=== PATIENT | female | born 1965 | race Caucasian/White ===

== ENCOUNTER → 2023-08-07 15:24 | Outpatient (REF) | payer OTHER, SELFPAY | LOC: MRI 3T 15:24 | PROVIDERS: ATTENDING PHYSICIAN Family Medicine | DX: K76.89 Other specified diseases of liver (principal) | CPT/HCPCS: 74183; A9575 ==

== ENCOUNTER 2024-01-08 13:19 | Emergency (ER) | payer OTHER, SELFPAY ==
[2024-01-08 13:24] VITALS: BP 121/65
[2024-01-08 13:47] LABS: % Basophils 0.3 % (0-2); % Immature Granulocytes 0.2 % (0-0.5); % Neutrophils 81.5 % (42.2-75.2); Absolute Lymphocytes 0.8 10^3/uL (1.2-3.4); Absolute Monocytes 0.4 10^3/uL (0.1-0.6); Absolute Neutrophils 5.1 10^3/uL (1.4-6.5); Hematocrit 34.4 % (37.0-47.0); Hemoglobin 11.8 g/dL (12.0-16.0); Mean Corp Hgb Conc. 34.3 g/dL (33.0-37.0); Mean Corpuscular Hgb 29.9 pg (27.0-31.0); Mean Corpuscular Volume 87.1 fL (81.0-99.0); Mean Platelet Volume 10.1 fL (7.4-10.4); Nucleated Red Blood Cells % 0 %; Platelet Count 230 10^3/uL (130-400); Red Blood Cell Count 3.95 10^6/uL (4.20-5.40); Red Cell Dist. Width 13.7 % (11.5-14.5); White Blood Cell Count 6.3 10^3/uL (4.8-10.8)
[2024-01-08 13:55] LABS: ALT (SGPT) 14 U/L (0-35); AST (SGOT) 23 U/L (14-36); Albumin 4.5 g/dl (3.5-5.0); Alkaline Phosphatase 65 U/L (38-126); Blood Urea Nitrogen 9 mg/dl (7-17); Calcium 9.6 mg/dl (8.4-10.2); Carbon Dioxide 28 mmol/L (22-30); Chloride 101 mmol/L (98-107); Glucose 112 mg/dl (70-99); Sodium 139 mmol/L (135-145); Total Bilirubin 0.5 mg/dl (0.2-1.3); Total Protein 7.1 g/dl (6.3-8.2); eGFR > 60.00
--- NOTE | 2024-01-08 14:00 | ED.GENMED ---
History of Present Illness
General
Chief Complaint: Cold/Flu/URI Symptoms
Source: patient
Exam Limitations: none
Time Seen by Provider: 01/08/24 13:50
History of Present Illness
History of Present Illness:
58-year-old female presents with 4 days worth of illness including congestion slight cough but no headache nausea vomiting. She states the nausea is most bothersome symptom. She does have a history of headaches. This is a gradual onset headache
that is not any worse than other headaches however this is persistent. She tried Nurtec at home as well as Phenergan without relief. She denies shortness of breath or abdominal pain. No measurable fever.
Past History
Past History
ED Past Medical History: Other (Anemia, PVCs); Negative Asthma, HTN, Hypercholesterolemia or NIDDM
ED Past Surgical History: Urological (Renal stent placed,) and Other (breast augmentation)
Social History
Tobacco: Non-smoker
Alcohol: None
Drug: None
Personal: Single
Living: with family
Phy Exam
Physical Exam
Physical Exam:
General: Well-appearing female no acute respiratory distress
HEENT: Normocephalic mucosa dry neck is equal round reactive to light
Heart: Regular rate and rhythm no murmurs
Lungs: Clear no wheeze
Abdomen is soft nontender nondistended no guarding or
Extremities: No cyanosis
Course
Orders/Labs/Results
Orders:
Orders
01/08/24 13:30
CBC/With Diff [Complete Blood Count/With Diff] Urgent
Comprehensive Metabolic Panel Urgent
01/08/24 13:58
0.9% Sodium Chloride 1000 ml [Nss] 1,000 ml IV BOLUS
Diphenhydramine [Benadryl] 12.5 mg IV NOW STA
Ketorolac [Toradol] 15 mg IV NOW STA
Prochlorperazine [Compazine] 10 mg IV NOW STA
Abnormal Lab Results
01/08/24
13:30
RBC 3.95 L 10^6/uL
(4.20-5.40)
Hgb 11.8 L g/dL
(12.0-16.0)
Hct 34.4 L %
(37.0-47.0)
Absolute Lymphs (auto) 0.8 L 10^3/uL
(1.2-3.4)
Neutrophils % 81.5 H %
(42.2-75.2)
Lymphocytes % 12.0 L %
(20.5-51.1)
Glucose 112 H mg/dl
(70-99)
01/08/24 13:30
01/08/24 13:30
Vital Signs
Initial and Last Documented VS:
Initial Vital Signs
Temp Pulse Resp BP Pulse Ox
98.3 F 84 16 121/65 99
01/08/24 13:24 01/08/24 13:24 01/08/24 13:24 01/08/24 13:24 01/08/24 13:24
Last Documented Vital Signs
Temp Pulse Resp BP Pulse Ox
98.3 F 84 16 121/65 99
01/08/24 13:24 01/08/24 13:24 01/08/24 13:24 01/08/24 13:24 01/08/24 13:24
MDM/Problems Addressed
Differential Diagnosis Includes:
Patient with nausea vomiting and headache with COVID-positive test 4 days ago. No respiratory distress. Abdomen exam benign no indication for imaging of abdomen. She does not describe sudden onset headache. Do not suspect subarachnoid
hemorrhage. Will treat symptoms with fluids Toradol Compazine Benadryl. Labs ordered through triage were reviewed without significant finding
*Critical Care Note
Total Time (30-74mins, 75-104mins- exclusive of procedures): Not Applicable
Update Note
Update Note:
Patient feeling much better after hydration and medication here. Stable for discharge home. Paxlovid not indicated at this time.
ED Attending Note
-
Portions of this chart may have been created with voice recognition software.� Occasional wrong word or��sound alike� substitutions may have occurred due to the inherent limitations of voice recognition software.
Discharge Plan
Departure
Patient Disposition: Home (Routine Discharge)
Date of Disposition: 01/08/24
Time of Disposition: 15:30
Patient with high blood pressure during this ER visit?: No
Discharge Problem:
Headache
Instructions: Viral Syndrome (DC)
Prescriptions:
New
ondansetron 4 mg tablet,disintegrating
4 mg PO Q8H PRN (Reason: nausea and vomiting) Qty: 10 0RF
No Action
black cohosh [Menopause Support] 20 MG tablet
20 mg PO DAILY
lysine [L-Lysine] 500 MG tablet
500 mg PO DAILY
magnesium oxide 500 MG capsule
500 mg PO DAILY
cyanocobalamin (vitamin B-12) [Vitamin B-12] 1,000 MCG/ML drops
1,000 mcg PO DAILY
meclizine 12.5 MG tablet
12.5 mg PO Q8HPRN PRN (Reason: dizziness) Qty: 12 0RF
Referrals:
UNKNOWN,NO INTERVIEW [Family Provider] -
Activity Restrictions/Additional Instructions:
Drink plenty of fluids. Continue with ibuprofen or Tylenol for pain. Use Zofran if needed for nausea
Interventions
Interventions:
*Risk Screen - Suicide Last Done: 01/08/24 13:24
*General Assessment Last Done: 01/08/24 13:24
*Neglect/Abuse Screening Last Done: 01/08/24 13:24
Discharge Date and Time
Print Language: UKRAINIAN
[2024-01-08] MEDS: NSS 1000 IV (14:33)
[2024-01-08] MEDS: TORADOL 15 MG IV (14:33)
[2024-01-08] MEDS: COMPAZINE 10 MG IV (14:34)
[2024-01-08] MEDS: BENADRYL 12.5 MG IV (14:35)
== END 2024-01-08 16:35 | disposition home or self-care (01) ==
LOC: EMR 13:19
PROVIDERS: Emergency Medicine; EMERGENCY PHYSICIAN Student in an Organized Health Care Education/Training Program
DX: R51.9 Headache, unspecified (principal); R11.2 Nausea with vomiting, unspecified; R05.9 Cough, unspecified; R09.89 Other specified symptoms and signs involving the circulatory and respiratory systems; U07.1 COVID-19; D64.9 Anemia, unspecified; I49.3 Ventricular premature depolarization; Z88.7 Allergy status to serum and vaccine
CPT/HCPCS: 99284; 96374; 96375 ×2; 80053; 85025

== ENCOUNTER 2024-11-27 10:03 | Outpatient (RCR) | payer OTHER, SELFPAY | END 2024-11-27 23:59 | disposition home or self-care (01) | LOC: RPT 10:03 | PROVIDERS: ATTENDING PHYSICIAN Obstetrics & Gynecology; FAMILY PHYSICIAN Family Medicine | DX: N94.12 Deep dyspareunia (principal); M62.89 Other specified disorders of muscle; Z73.6 Limitation of activities due to disability | CPT/HCPCS: 97014; 97110; 97112; 97140; 97162; 97530 ==

== ENCOUNTER 2024-12-25 11:04 | Outpatient (RCR) | payer OTHER, SELFPAY | END 2024-12-25 23:59 | disposition home or self-care (01) | LOC: RPT 11:04 | PROVIDERS: ATTENDING PHYSICIAN Obstetrics & Gynecology; FAMILY PHYSICIAN Family Medicine | DX: N94.12 Deep dyspareunia (principal); M62.89 Other specified disorders of muscle; Z73.6 Limitation of activities due to disability | CPT/HCPCS: 97014; 97110; 97112; 97140 ==

== ENCOUNTER 2025-01-28 13:19 | Outpatient (RCR) | payer OTHER, SELFPAY | END 2025-01-28 23:59 | disposition home or self-care (01) | LOC: RPT 13:19 | PROVIDERS: ATTENDING PHYSICIAN Obstetrics & Gynecology; FAMILY PHYSICIAN Family Medicine | DX: N94.12 Deep dyspareunia (principal); M62.89 Other specified disorders of muscle; Z73.6 Limitation of activities due to disability | CPT/HCPCS: 97110; 97112; 97140; 97530 ==